=== PATIENT | female | born 1975 | race Caucasian/White ===

== ENCOUNTER 2018-01-06 20:50 | Emergency (ER) | payer BC, OTHER ==
[~2018-01-06] VITALS: Ht 172.7 cm; Wt 68.0 kg
[~2018-01-06 20:50] MED LIST: OMEPRAZOLE
[2018-01-06] MEDS ORDERED: LORAZEPAM 0.5 MG TABLET PO ONE (21:30)
[2018-01-06] MEDS ORDERED: LORAZEPAM 1 MG TABLET ONE (21:34)
--- NOTE | 2018-01-06 23:16 | NUR ---
Patient discharged to home in stable conditon. Written and verbal after care instructions given. Patient verbalizes understanding of instructions. Patient ambulated from ER in steady gait. Pt denies anxiety/panic attack at this time. All belongings with pt. No acute distress noted. VSS.
[2018-01-06 23:19] VITALS: BP 138/88
== END 2018-01-06 22:17 | disposition home or self-care (01) ==
LOC: ER 20:53
DX: F41.9 Anxiety disorder, unspecified (principal); Z88.0 Allergy status to penicillin; Z88.1 Allergy status to other antibiotic agents
CPT/HCPCS: 93005; A4663